=== PATIENT | female | born 2000 | race Caucasian/White ===

== ENCOUNTER 2020-02-06 08:07 | Outpatient (NON) | payer OTHER, SELFPAY ==
[2020-02-06 22:00] LABS: SARS-CoV-2 RNA PCR Positive
== END 2020-02-06 08:08 ==
PROVIDERS: PCP Emergency Medicine; Visit Provider Emergency Medicine
DX: U07.1 COVID-19 (principal)
CPT/HCPCS: 87635; C9803; U0003

== ENCOUNTER → 2021-08-30 13:13 | Outpatient (CLI) | payer OTHER, SELFPAY ==
--- NOTE | ~2021-08-30 | XR_ITS ---
EXAMINATION: XR chest 2V DATE: 08/30/2021 13:47 INDICATION: Cough. TECHNIQUE: Frontal and lateral views of the chest were obtained. COMPARISON: Chest 2 views 12/17/2018 FINDINGS: The chest demonstrates clear lungs without pneumonia, pleural effusion, or pneumothorax. Th e heart size is normal. IMPRESSION: 1. No acute cardiopulmonary disease. Reviewed, dictated and finalized at location A.
== END ==
PROVIDERS: PCP Emergency Medicine; Visit Provider Emergency Medicine
DX: R68.89 Other general symptoms and signs (principal); R05.9 Cough, unspecified
CPT/HCPCS: 71046

== ENCOUNTER 2023-12-16 03:50 | Emergency (ER) | payer OTHER, SELFPAY ==
--- NOTE | ~2023-12-16 | XR_ITS ---
Portable chest x-ray Comparison: 08/30/2021 Clinical History: Syncope Findings: Lungs are clear, without focal consolidation or pleural effusion. Cardiomediastinal silho uette is stable. Bones and soft tissues are unremarkable. Impression: Normal chest. Reviewed, dictated and finalized at location . Impression: Normal chest.
--- NOTE | ~2023-12-16 | CT_ITS ---
Non-contrast Head CT History: Head injury Technique: Axial non-contrast imaging of the brain was performed. Dose reduction technique was used on this scan by utilizing automated exposure control and iterative reconstruction technique. The dose -length product (DLP) was 605.33 mGy-cm. Findings: There is no evidence of intracranial hemorrhage, mass lesion, or acute infarct. Brain par enchyma appears normal. The ventricles and subarachnoid spaces are normal in size. The calvarium ap pears normal. The visualized paranasal sinuses and mastoid air cells are clear. Impression: No significant abnormality seen. Reviewed, dictated and finalized at location . Impression: No significant abnormality seen.
--- NOTE | 2023-12-16 04:16 | ECG_ITS ---
Test Date: 2023-12-16 04:26:38 Measurements Intervals [place] Rate: 89 P: 9 ME: 136 QRS: 30 QRSD: 93 T: 6 QT: 343 QTc: 418 Interpretive Statements SINUS RHYTHM No previous ECG available for comparison Electronically Signed On 12-16-2023 14:43:47 CDT by Gerald Velasquez M.D.
[2023-12-16 04:18] VITALS: BP 127/80; PULSE 91; RESP 22; TEMP 37.1; O2SAT 99
[2023-12-16 04:23] VITALS: O2SAT 100
--- NOTE | 2023-12-16 04:39 | ED_ITS ---
HPI - General Adult General Chief complaint: Head Injury Stated complaint: Laughing and passed out, hit head Time Seen by Provider: 12/16/23 04:11 History of Present Illness HPI narrative: Patient is a 23-year-old female presents emergency department with chief complaint of syncopal episode. The patient reports that she was with a friend and show sitting in the kitchen and started laughing the patient reports that she passed out while she was laughing struck her head on the refrigerator reports that she was slightly confused afterwards the patient does report that she has had episodes where she feels lightheaded and feels like she is going to pass out but has not passed out previously Related Data Home Medications Medication Instructions Recorded Confirmed clindamycin phosphate 1 % vaginal BID 12/17/18 01/01/19 albuterol sulfate 90 mcg/actuation 2 puff inhalation QID PRN 01/01/19 01/01/19 aerosol inhaler Shortness Of Breath Allergies Allergy/AdvReac Type Severity Reaction Status Date / Time ondansetron Allergy Unknown Unknown Verified 12/16/23 04:24 Review of Systems Review of Systems: A 10 system review of systems was completed on the patient and is negative except for what is stated in the HPI. Nursing and ancillary documentation was reviewed. [facility] Past Medical History Medical History Acute infective tonsillitis Depression Tonsillitis Surgical History Surgical History Hx of tonsillectomy Social History Social History Gender identity (if verbalized by the patient): Female Exam Narrative: GENERAL: Well-appearing, well-nourished, and in no acute distress. HEAD: Normocephalic, small abrasion present over right eyebrow. EYES: PERRLA and EOMI. ENT: Nares clear, no rhinorrhea or epistaxis. Mucous membranes moist. NECK: Supple. CHEST: Clear to auscultation. No respiratory distress. HEART: Regular rate and rhythm. No murmur heard. Normal peripheral pulses. ABDOMEN: Soft, nontender, nondistended, normal active bowel sounds. EXTREMITIES: Normal range of motion. No edema. SKIN: Warm, dry, no rash. NEURO: No focal deficits. Alert and oriented x3. PSYCH: Normal mood and affect. Course Vital Signs Vital signs: Vital Signs Temperature 37.1 C 12/16/23 04:18 Pulse Rate 91 12/16/23 04:18 Respiratory Rate 22 H 12/16/23 04:18 Blood Pressure 127/80 12/16/23 04:18 Pulse Oximetry 99 12/16/23 04:18 Oxygen Delivery Room Air 12/16/23 04:18 Temperature 37.1 C 12/16/23 04:18 Pulse Rate 86 12/16/23 05:35 Respiratory Rate 20 12/16/23 05:35 Blood Pressure 141/78 H 12/16/23 05:35 Pulse Oximetry 99 12/16/23 05:35 Oxygen Delivery Room Air 12/16/23 04:23 Medical Decision Making MDM Narrative Medical decision making narrative: Differential diagnosis includes vasovagal syncope, electrolyte abnormality, dysrhythmia, head injury CT head showed no evidence of acute abnormality chest x-ray was negative urinalysis was negative electrolytes are within normal limits CBC was within normal limits Patient be discharged home follow-up primary care Vital Signs Vital Signs: Vital Signs Temperature 37.1 C 12/16/23 04:18 Pulse Rate 91 12/16/23 04:18 Respiratory Rate 22 H 12/16/23 04:18 Blood Pressure 127/80 12/16/23 04:18 Pulse Oximetry 99 12/16/23 04:18 Oxygen Delivery Room Air 12/16/23 04:18 Temperature 37.1 C 12/16/23 04:18 Pulse Rate 86 12/16/23 05:35 Respiratory Rate 20 12/16/23 05:35 Blood Pressure 141/78 H 12/16/23 05:35 Pulse Oximetry 99 12/16/23 05:35 Oxygen Delivery Room Air 12/16/23 04:23 Lab Data 12/16/23 04:26 12/16/23 04:26 Labs: Lab Results 12/16/23 12/16/23 12/16/23 Range/Units 04:26 04:34 05:32 WBC 6.8 (4.5-10.0) K/mm3 RBC 4.54 (4.2-5.4) M/mm3 Hgb 12.1 (12.0-15.0) g/dL Hct 37.5 (37.0-47.0) % MCV 82.6 (80-100) fl MCH 26.7 (26-34) pg MCHC 32.3 (32-36) g/dl RDW 13.7 (11.5-14.5) % Plt Count 247 (150-375) k/mm3 MPV 10.2 (7.4-10.4) fl Immature Gran % (Auto) 0.3 (0-0.5) % Neut % (Auto) 58.2 (45.5-73.1) % Lymph % (Auto) 32.6 (18.3-44.2) % [place] % (Auto) 8.1 (2.6-8.5) % Eos % (Auto) 0.4 (0-4.4) % Baso % (Auto) 0.4 (0.2-1.2) % Lymph # (Auto) 2.21 (0.9-3.2) K/mm3 [place] # (Auto) 0.6 (0.1-0.6) K/mm3 Eos # (Auto) 0.0 (0-0.3) K/mm3 Baso # (Auto) 0.0 (0.0-0.1) K/mm3 Abs Immat Gran (auto) 0.02 (0.00-0.031) K/mm3 Absolute Neuts (auto) 3.9 (1.3-6.7) K/mm3 Absolute Nucleated RBC 0.000 (0.0-0.012) K/mm3 Nucleated RBC % 0.0 (0.0-0.2) % Sodium 136 L (137-145) mmol/L Potassium 3.9 (3.4-5.0) mmol/L Chloride 103 (98-107) mmol/L Carbon Dioxide 26 (22-30) mmol/L Anion Gap 7 (4-12) mmol/L BUN 9 (7-17) mg/dL Creatinine 0.80 (0.7-1.0) mg/dL Estim Creat Clear Calc 135 ml/min Estimated GFR > 60 (59 - ) Glucose 114 H (65-110) mg/dL Lactic Acid 1.1 (0.7-2.0) mmol/L Calcium 9.2 (8.4-10.2) mg/dL Magnesium 2.1 (1.6-2.3) mg/dL Total Bilirubin 0.3 (0.2-1.3) mg/dL AST 19 (14-36) U/L ALT 17 (6-35) U/L Alkaline Phosphatase 67 (38-126) U/L Total Protein 8.0 (6.3-8.2) g/dL Albumin 4.2 (3.5-5.1) g/dL Urine Color Yellow (Yellow) Urine Appearance Clear (Clear) Urine pH 7.0 (5.0-9.0) Ur Specific [place] 1.022 (1.001-1.035) Urine Protein Negative (Negative) mg/dL Urine Glucose (UA) Negative (Negative) mg/dL Urine Ketones Negative (Negative) mg/dL Ur Blood (Man) Negative (Negative) Urine Nitrate Negative (Negative) Urine Bilirubin Negative (Negative) Urine Urobilinogen 0.2 (<2.0) mg/dL Leukocyte Esterase Rfl Negative (Negative) CAMILO/UL POC Urine HCG, Qual Negative (Negative) Discharge Plan Discharge Clinical Impression: Head injury, Syncope, vasovagal Patient Disposition: Home, Self-Care Condition: Stable Instructions: Antibiotic Form, Syncope (ED), Head Injury (ED) Prescriptions: No Action clindamycin phosphate liquid 1 % vaginal BID albuterol sulfate 90 mcg/actuation Hfa Aerosol Inhaler 2 puff INHALATION QID PRN (Reason: Shortness Of Breath) triamcinolone acetonide 0.1 % cream 1 applic TOPICAL BID Qty: 30 0RF Follow-up/Referrals: Austen Agarwal MD [Primary Care Provider] - Time of Disposition: 06:25
[2023-12-16 04:40] LABS: Basophils Percent Auto 0.4 % (0.2-1.2); Eosinophils Percent Auto 0.4 % (0-4.4); Hematocrit 37.5 % (37.0-47.0); Hemoglobin 12.1 g/dL (12.0-15.0); Immature Granulocyte Absolute 0.02 K/mm3 (0.00-0.031); Immature Granulocyte Percent A 0.3 % (0-0.5); Lymphocytes Absolute Auto 2.21 K/mm3 (0.9-3.2); Lymphocytes Percent Auto 32.6 % (18.3-44.2); Mean Corpuscular HGB Conc 32.3 g/dl (32-36); Mean Corpuscular Hemoglobin 26.7 pg (26-34); Mean Corpuscular Volume 82.6 fl (80-100); Mean Platelet Volume 10.2 fl (7.4-10.4); Monocytes Absolute Auto 0.6 K/mm3 (0.1-0.6); Monocytes Percent Auto 8.1 % (2.6-8.5); Neutrophils Absolute Auto 3.9 K/mm3 (1.3-6.7); Neutrophils Percent Auto 58.2 % (45.5-73.1); Platelet Count Result 247 k/mm3 (150-375); Red Blood Count 4.54 M/mm3 (4.2-5.4); Red Cell Distribution Width 13.7 % (11.5-14.5); White Blood Count 6.8 K/mm3 (4.5-10.0)
[2023-12-16 04:42] LABS: Add Urine Microscopic? NO; Appearance Urine Clear (Clear); Bilirubin Urine Negative (Negative); Blood Urine Negative (Negative); Color Urine Yellow (Yellow); Glucose Urine UA Negative (Negative); Ketones Urine Negative (Negative); Leukocyte Esterase Ur Negative LEU/UL (Negative); Nitrate Urine Negative (Negative); Protein Urine Negative (Negative); Specific Grav Ur 1.022 (1.001-1.035); Urobilinogen Urine 0.2 mg/dL (<2.0)
[2023-12-16 04:53] LABS: Alanine Aminotransferase 17 U/L (6-35); Albumin Level 4.2 g/dL (3.5-5.1); Alkaline Phosphatase 67 U/L (38-126); Anion Gap 7 mmol/L (4-12); Aspartate Amino Transferase 19 U/L (14-36); Bilirubin,Total 0.3 mg/dL (0.2-1.3); Blood Urea Nitrogen 9 mg/dL (7-17); Calcium 9.2 mg/dL (8.4-10.2); Carbon Dioxide 26 mmol/L (22-30); Chloride 103 mmol/L (98-107); Estimated CRCL calculation 135 ml/min; Estimated Glomerular Filt Rate > 60; Glucose 114 mg/dL (65-110); Lactic Acid Reflex 1.1 mmol/L (0.7-2.0); Magnesium 2.1 mg/dL (1.6-2.3); Potassium 3.9 mmol/L (3.4-5.0); Sodium 136 mmol/L (137-145)
[2023-12-16 05:33] LABS: BEDSIDEPREGUCG Negative (Negative)
[2023-12-16 05:35] VITALS: BP 141/78; PULSE 86; RESP 20; O2SAT 99
== END 2023-12-16 06:34 | disposition home or self-care (01) ==
PROVIDERS: Emergency Provider Emergency Medicine; PCP Emergency Medicine
DX: R55 Syncope and collapse (principal); S00.211A Abrasion of right eyelid and periocular area, initial encounter; W18.39XA Other fall on same level, initial encounter
CPT/HCPCS: 36415; 70450; 71045; 80053; 81003; 81025; 83605; 83735; 85025; 93005; 99284